=== PATIENT | male | born 1945 | race Caucasian/White ===

== ENCOUNTER 2017-04-18 12:47 | Outpatient (CLI) | payer MEDICARE, BC ==
[~2017-04-18] VITALS: Ht 170.2 cm; Wt 80.6 kg
[~2017-04-18 12:47] MED LIST: ASPIRIN 81M81 MG/TA2 PO; COREG 6.256.25 MG/TA PO; FLOMAX 0.40.4 MG/CAP PO; LEVSIN 0.10.125 MG/T PO; LIPITOR 40MG TA40 MG PO; LOPRESSOR 225 MG/TAB PO; MASON NATURAL1200 MG PO; MULTIPLE VITAMI1 CAP PO; OSTEO-BI-FLEX 21 TAB PO; PERCOCET 325 MG1 TA2 PO; PRILOSEC 20MG20 MG PO; PYRIDIUM 100MG100 MG PO
[2017-04-18] MEDS ORDERED: ZANTAC 7575 MG PO (13:02)
[2017-04-18] MEDS ORDERED: STOOL SOFTENER100 M2 PO (13:03)
[2017-04-18] MEDS ORDERED: AMITRIPTYLINE H25 M1 PO (13:04)
[2017-04-18 13:48] LABS: INR 1.1 (0.8-3.0); PROTHROMBIN TIME 11.9 SECONDS (9.7-12.8)
[2017-04-18 13:55] LABS: CALCIUM 8.8 mg/dL (8.4-10.2); CREATININE, serum 0.93 mg/dL (0.66-1.25); POTASSIUM 4.3 mmol/L (3.4-5.0)
[2017-04-18 14:17] VITALS: BP 121/68; PULSE 60
[2017-04-18 14:48] VITALS: BP 149/87; PULSE 63
[2017-04-18 15:27] VITALS: BP 125/73; PULSE 71
[2017-04-18 15:30] VITALS: BP 125/73; PULSE 70
[2017-04-18] MEDS ORDERED: CEPHALEXIN500 M1 PO (15:44)
[2017-04-18 16:00] VITALS: BP 123/84; PULSE 75
== END 2017-04-18 16:10 | disposition home or self-care (01) ==
LOC: COL.RAD 12:47
PROVIDERS: Internal Medicine Cardiovascular Disease
DX: I70.8 Atherosclerosis of other arteries (principal); I34.0 Nonrheumatic mitral (valve) insufficiency; I70.0 Atherosclerosis of aorta; I25.10 Atherosclerotic heart disease of native coronary artery without angina pectoris; I07.1 Rheumatic tricuspid insufficiency; Z87.891 Personal history of nicotine dependence; Z86.79 Personal history of other diseases of the circulatory system; Z79.82 Long term (current) use of aspirin; Z87.442 Personal history of urinary calculi; Z95.5 Presence of coronary angioplasty implant and graft; Z85.828 Personal history of other malignant neoplasm of skin; Z82.49 Family history of ischemic heart disease and other diseases of the circulatory system; Z82.3 Family history of stroke; Z80.8 Family history of malignant neoplasm of other organs or systems
CPT/HCPCS: C1764; J2250; J3010

== ENCOUNTER 2020-09-15 07:46 | Day surgery (SDC) | payer MEDICARE, BC ==
[2020-09-15] VITALS (9 sets, daily range): BP systolic 99–119; BP diastolic 54–66; PULSE 52–58; TEMP 97.9
[~2020-09-15] VITALS: Ht 170.3 cm; Wt 79.7 kg
[~2020-09-15 07:46] MED LIST changes: +AMITRIPTYLINE H25 M1 PO; +CEPHALEXIN500 M1 PO; +EPA FISH OIL1 SGL PO; -MASON NATURAL1200 MG PO; +STOOL SOFTENER100 M2 PO; +ZANTAC 7575 MG PO
[2020-09-15] MEDS ORDERED: MASON NATURAL2000 IU PO (08:59)
[2020-09-15] MEDS ORDERED: ZESTRIL 10MG10 MG PO (09:01)
[2020-09-15] MEDS ORDERED: NITROSTAT0.4 MG/TAB SL ×2 (09:02→11:12)
[2020-09-15] MEDS ORDERED: focus factor PO (09:03)
[2020-09-15] MEDS ORDERED: CEPHALEXIN500 M1 PO (11:12)
--- NOTE | 2020-09-15 11:30 | NUR ---
Discharge instructions given to pt.Pt verbalizes understanding.INT removed,catheter tip intact.Pt escorted out via wheelchair.
== END 2020-09-15 14:14 | disposition home or self-care (01) ==
LOC: COL.CAR 07:46
DX: Z45.09 Encounter for adjustment and management of other cardiac device (principal); R55 Syncope and collapse; I25.10 Atherosclerotic heart disease of native coronary artery without angina pectoris; I10 Essential (primary) hypertension; I08.3 Combined rheumatic disorders of mitral, aortic and tricuspid valves; Z20.822 Contact with and (suspected) exposure to COVID-19; Z95.1 Presence of aortocoronary bypass graft; Z85.828 Personal history of other malignant neoplasm of skin; Z88.8 Allergy status to other drugs, medicaments and biological substances; Z79.82 Long term (current) use of aspirin; Z79.899 Other long term (current) drug therapy; Z87.891 Personal history of nicotine dependence; Z82.3 Family history of stroke; Z80.8 Family history of malignant neoplasm of other organs or systems
CPT/HCPCS: C1764; J0690; J2250; J3010